=== PATIENT | female | born 1955 | race Caucasian/White ===

== ENCOUNTER 2017-11-27 14:30 | Emergency (ER) | payer BC ==
[~2017-11-27] VITALS: Ht 160 cm; Wt 69.1 kg
[~2017-11-27 14:30] MED LIST: BENICAR5 MG PO; NORVASC5 MG PO
[2017-11-27 15:01] LABS: HEMATOCRIT 40.6 % (36.0-46.0); HEMOGLOBIN 13.6 G/DL (11.9-15.5); MCH 30.4 PG (29.0-34.0); MCHC 33.5 G/DL (30.0-36.0); MCV 90.8 FL (83-99); PLATELET COUNT 231 K/uL (156-360); RBC DIS.WIDTH-SD 43.3 % (39-53); RED BLOOD COUNT 4.47 M/uL (3.80-5.20); WHITE BLOOD COUNT 6.3 K/uL (4.1-10.2)
[2017-11-27 15:10] LABS: CHLORIDE 106 mEq/L (99-109); POTASSIUM 3.8 mEq/L (3.7-5.4); SODIUM 141 mEq/L (136-147)
[2017-11-27 15:12] LABS: GLUCOSE 106 mg/dL (70-99)
[2017-11-27 15:16] LABS: CREATININE 0.8 mg/dL (0.6-1.3); GFR ESTIMATE (CALCULATED) > 59 mL/min/
[2017-11-27 15:17] LABS: UREA NITROGEN (BUN) 12 mg/dL (9-23)
[2017-11-27 15:22] LABS: TROP-I INTERPRETATION NEGATIVE; TROPONIN-I < 0.01 ng/mL (0.0-0.30)
[2017-11-27 17:16] VITALS: BP 134/70
== END 2017-11-27 17:17 | disposition home or self-care (01) ==
LOC: EME 14:30
DX: R07.89 Other chest pain (principal); I45.10 Unspecified right bundle-branch block; K21.9 Gastro-esophageal reflux disease without esophagitis; I10 Essential (primary) hypertension
CPT/HCPCS: 71046; 80048; 84484; 85027; 93005; 99281; 99284